=== PATIENT | female | born 1945 | race Caucasian/White ===

== ENCOUNTER 2017-07-13 07:38 | Inpatient (IN) | payer MEDICARE ==
[2017-07-08 13:41] VITALS: BMI 39.6
[2017-07-13] MEDS ORDERED: Clindamycin/D5W 900 mg/50 ml Premix Bag ONE (08:06)
[2017-07-13] MEDS ORDERED: Levofloxacin 500 mg/D5W 100 ml Premix Bag ONE (08:06)
[2017-07-13 08:34] LABS: #Basophils 0.1 thou/uL (0.0-0.2); #Eosinphils 0.2 thou/uL (0.0-0.7); #Lymphocytes 2.3 thou/uL (1.20-3.40); #Monocytes 0.5 thou/uL (0.11-0.59); #Neutrophils 3.7 thou/uL (1.40-6.50); %Basophils 0.9 % (0.0-1.0); %Eosinophils 3.2 % (0.0-10.0); %Lymphocytes 33.7 % (21.0-51.0); %Monocytes 7.8 % (0.0-10.0); Hematocrit 44.2 % (36.0-47.0); Mean Platelet Volume 7.4 fL (7.4-10.4); Red Blood Cell (RBC) Count 4.46 mill/uL (4.20-5.40); White Blood Cell (WBC) Count 6.9 thou/uL (4.8-10.8)
[2017-07-13 08:52] LABS: Anion Gap 13 mmol/L (10-20); BUN (Urea Nitrogen) 20 mg/dL (9.8-20.1); Calc. Creatinine Clearance 75 mL/min (70-130); Calcium 9.7 mg/dL (7.8-10.44); Carbon Dioxide 30 mmol/L (23-31); Chloride 103 mmol/L (98-107); Estimated GFR-MDRD 55
[2017-07-13] MEDS ORDERED: Fentanyl 250 MCG/5 ML VIAL ONE ×2 (09:31→11:30)
[2017-07-13] MEDS ORDERED: Midazolam HCl 2 mg/2 ml Vial ONE (09:31)
--- NOTE | 2017-07-13 11:04 | OP ---
DATE OF PROCEDURE: 07/13/2017 SURGEON: Son Sandoval M.D. MANUFACTURER'S SERVICE REPRESENTATIVE: Andrea Sharma PA-C PROCEDURE: Left L3-4 far lateral microdiskectomy. PROCEDURE IN DETAIL: The patient brought to the operating room and intubated. She was rolled in the prone position on gel-filled chest rolls. Incision made exposing left L4-5 and our level was confir med by x-ray. We performed a left L4-5 facetectomy, laminectomy, and foraminotomy and identified the left L4 nerve root and the left L4-5 lateral recess. We identified an extruded disc herniation and a bulging lateral disk herniation and these were removed and completely decompressing the neural chilkoot ents. The wound was extensively irrigated, immaculate hemostasis was secured. Vancomycin powder was applied and the wound was closed in anatomic layers.
[2017-07-13] MEDS ORDERED: HYDROmorphone 2 MG/ML VIAL SLOW IVP PRN (11:31)
[2017-07-13] MEDS ORDERED: Ondansetron HCl/PF 4 MG/2 ML Vial IVP PRN (11:31)
[2017-07-13] MEDS ORDERED: Promethazine HCl 25 MG/ML VIAL IM PRN ×2 (11:31→12:04)
[2017-07-13] MEDS ORDERED: Promethazine HCl 25 MG/ML VIAL SLOW IVP PRN (11:31)
[2017-07-13] MEDS ORDERED: Albuterol Sulfate 1.25 MG/3 ML NEB ONE (11:57)
[2017-07-13] MEDS ORDERED: Ondansetron HCl/PF 4 MG/2 ML Vial IM PRN (12:04)
[2017-07-13] MEDS ORDERED: Milk Of Magnesia 30 ML UDCUP PO PRN ×2 (12:04→17:15)
[2017-07-13] MEDS ORDERED: Promethazine HCl 12.5 MG SUPP PR PRN (12:04)
[2017-07-13] MEDS ORDERED: Zolpidem Tartrate 5 MG TAB PO PRN (12:04)
[2017-07-13] MEDS ORDERED: tiZANidine HCl 4 MG TAB PO PRN (12:04)
[2017-07-13] MEDS ORDERED: Mag-Al 1200 mg/1200 mg/30 ML UDCUP PO PRN (12:04)
[2017-07-13] MEDS ORDERED: diphenhydrAMINE 50 MG/ML VIAL IVP PRN (12:04)
[2017-07-13] MEDS ORDERED: diphenhydrAMINE 25 MG CAP PO PRN (12:04)
[2017-07-13] MEDS ORDERED: HYDROcodone/Acetaminophen 10/325 mg Tablet PO PRN ×2 (12:04)
[2017-07-13] MEDS ORDERED: Sodium Chloride For Inhalation 0.9% 3 ML NEB ONE (12:20)
[2017-07-13] MEDS ORDERED: Morphine 4 MG/ML VIAL ONE ×2 (13:43→16:16)
[2017-07-13] MEDS ORDERED: Ketorolac Tromethamine 30 MG/ML VIAL ONE (13:59)
[2017-07-13] MEDS ORDERED: Glycopyrrolate 0.2 MG/ML 5 ML SYRINGE ONE (13:59)
[2017-07-13] MEDS ORDERED: Lidocaine 1% PF 5 ML VIAL ONE (13:59)
[2017-07-13] MEDS ORDERED: Dexamethasone 20 MG/5 ML VIAL ONE (13:59)
[2017-07-13] MEDS ORDERED: Ondansetron HCl/PF 4 MG/2 ML Vial ONE (13:59)
[2017-07-13] MEDS ORDERED: Propofol 200 MG/20 ML VIAL ONE (13:59)
[2017-07-13] MEDS ORDERED: Acetaminophen/Codeine 30-300mg Tablet PO PRN (17:06)
[2017-07-13] MEDS ORDERED: ALPRAZolam 0.25 MG TAB PO PRN (17:06)
[2017-07-13] MEDS ORDERED: Cyanocobalamin 1000 MCG/ML VIAL IM SCH (17:15)
[2017-07-13] MEDS ORDERED: Senokot 8.6 MG TAB PO PRN (17:17)
[2017-07-13] MEDS ORDERED: Nitroglycerin 0.4 MG TAB (25 Tab Bottle) SL PRN (17:17)
[2017-07-13] MEDS: Ketorolac Tromethamine 30 MG/ML VIAL IVP SCH (17:21)
[2017-07-13] MEDS: Clindamycin/D5W 900 MG in Premix Bag 1 BAG IVPB SCH (17:22)
[2017-07-13] MEDS ORDERED: HumaLOG 300 UNITS/3 ML VIAL SC PRN (17:59)
[2017-07-13] MEDS: Sodium Chloride 0.9% 1,000 ML IV SCH (19:10)
--- NOTE | 2017-07-13 19:29 | PDOC.PN ---
- Subjective Encounter Start Date: 07/13/17 Encounter Start Time: 19:27 Pt seen for management of medical comorbidities, including chest pain. She reports having chest tightness starting 15 min ago, accompanied by jaw discomfort. Reports having similar episodes in the past. Reports having stents (artificial plastic eye maker is in [place], pt saw Dr Gutiérrez prior to surgery). Denies fevers or chills. No nausea or vomiting. - Objective MAR Reviewed: Yes Vital Signs & Weight: Vital Signs (12 hours) Temp Pulse Resp BP Pulse Ox 07/13/17 18:16 98.2 F 101 H 20 128/78 95 07/13/17 17:00 98.2 F 92 20 147/81 H 95 Weight Weight 210 lb Result Diagrams: 07/13/17 08:09 07/13/17 08:09 Additional Labs: Accuchecks 07/13/17 13:53 POC Glucose 264 H Phys Exam - Physical Examination Obese HEENT: moist MMs, sclera anicteric Neck: supple Respiratory: no wheezing, no rales, no rhonchi, clear to auscultation bilateral Cardiovascular: RRR, no rub Gastrointestinal: soft, non-tender Musculoskeletal: pulses present s/p back surgery Neurological: moves all 4 limbs Lymphatic: no nodes Psychiatric: normal affect, A&O x 3 Skin: no rash, normal turgor Dx/Plan (1) Chest pain Code(s): R07.9 - CHEST PAIN, UNSPECIFIED Status: Acute (2) DM2 (diabetes mellitus, type 2) Status: Chronic (3) Dyslipidemia Code(s): E78.5 - HYPERLIPIDEMIA, UNSPECIFIED Status: Chronic (4) CAD (coronary artery disease) Code(s): I25.10 - ATHSCL HEART DISEASE OF [place] CORONARY ARTERY W/O ANG PCTRS Status: Chronic (5) HTN (hypertension) Code(s): I10 - ESSENTIAL (PRIMARY) HYPERTENSION Status: Chronic - Plan * . Check 12 lead EKG, troponin. Pt says she is currently pain free. Continue nitro PRN. If abnormal EKG or troponins, consider transfer to telemetry floor overnight. Pt's blood sugars have been high, monitor blood sugars, pt may need adjustments to insulin pump dosing. She reports blood sugars are controlled at home, high sugars today may be due to surgery/catecholamine response. Monitor vital signs, titrate antihypertensives as needed. Review of Systems - Review of Systems Respiratory: negative: Cough, Dry, Shortness of Breath, Hemoptysis, SOB with Excertion, Pleuritic Pain, Sputum, Wheezing Cardiovascular: Chest Pain. negative: Palpitations, Orthopnea, Paroxysmal Noc. Dyspnea, Edema, Light Headedness Gastrointestinal: negative: Nausea, Vomiting, Abdominal Pain, Diarrhea, Constipation, Melena, Hematochezia Musculoskeletal: Back Pain - Medications/Allergies Allergies/Adverse Reactions: Allergies Allergy/AdvReac Type Severity Reaction Status Date / Time lactose Allergy Verified 07/08/17 13:40 Penicillins Allergy SEVERE Verified 07/08/17 13:40 BLOOD SUGAR ELEVATION Sulfa (Sulfonamide Allergy Verified 07/08/17 13:37 Antibiotics) IVP Allergy Uncoded 07/08/17 13:39 Medications: Current Medications Acetaminophen/Codeine Phosphate (Tylenol #3) 1 tab PO BID PRN PRN Reason: Pain Hydrocodone Bitart/Acetaminophen ([place] 10/325) 1 tab PO Q4H PRN PRN Reason: PAIN (1-3) Hydrocodone Bitart/Acetaminophen ([place] 10/325) 2 tab PO Q4H PRN PRN Reason: PAIN (4-6) Acidophilus (Floranex) 1 tab PO DAILY [facility] Al Hydroxide/Mg Hydroxide (Maalox) 30 ml PO Q4H PRN PRN Reason: Heartburn or Indigestion Alprazolam (Xanax) 0.25 mg PO DAILYPRN PRN PRN Reason: Insomnia Coenzyme Q10 (Coenzyme Q10) 100 mg PO DAILY [facility] Cyanocobalamin (Vitamin B-12) 1,000 mcg IM Q30D [facility] Diphenhydramine HCl (Benadryl) 25 mg PO Q6H PRN PRN Reason: Itching Diphenhydramine HCl (Benadryl) 25 mg IVP Q6H PRN PRN Reason: Itching Fenofibrate (Tricor) 145 mg PO DAILY [facility] Hydrochlorothiazide (Hydrochlorothiazide) 12.5 mg PO DAILY [facility] Sodium Chloride (Normal Saline 0.9%) 1,000 mls @ 75 mls/hr IV .[id number] [facility] Last Admin: 07/13/17 19:10 Dose: Not Given Clindamycin Phosphate/Dextrose (900 mg/ Device) 50 mls @ 100 mls/hr IVPB 0000, 1600 [facility] Stop: 07/14/17 00:29 Last Admin: 07/13/17 17:22 Dose: 50 mls Insulin Human Lispro (Humalog) 0 units SC ASDIR PRN PRN Reason: Hyperglycemia Ketorolac Tromethamine (Toradol) 15 mg IVP Q6HR [facility] Stop: 07/15/17 12:01 Last Admin: 07/13/17 17:21 Dose: 15 mg Loratadine (Claritin) 10 mg PO DAILY [facility] Losartan Potassium (Cozaar) 100 mg PO DAILY [facility] Magnesium Hydroxide (Milk Of Magnesium) 30 ml PO Q12H PRN PRN Reason: Constipation Magnesium Hydroxide (Milk Of Magnesium) 5 ml PO DAILY PRN PRN Reason: Constipation Meclizine HCl (Antivert) 50 mg PO DAILY [facility] Metoprolol Succinate (Toprol Xl) 50 mg PO HS [facility] Morphine Sulfate (Morphine) 2 mg SLOW IVP Q1H PRN PRN Reason: Moderate Breakthrough Pain Multivitamins (Theragran) 1 tab PO DAILY [facility] Nitroglycerin (Nitrostat) 0.4 mg SL Q5MIN PRN PRN Reason: Chest Pain Ondansetron HCl (Zofran) 4 mg IM Q24H PRN PRN Reason: Nausea/Vomiting Promethazine HCl (Phenergan) 12.5 mg IM Q4H PRN PRN Reason: Nausea/Vomiting Promethazine HCl (Phenergan) 12.5 mg PO Q4H PRN PRN Reason: Nausea/Vomiting Promethazine HCl (Phenergan Suppository) 12.5 mg IN Q4H PRN PRN Reason: Nausea/Vomiting Rosuvastatin Calcium (Crestor) 20 mg PO HS [facility] Senna (Senokot) 2 tab PO HS PRN PRN Reason: Constipation Sodium Chloride (Flush - Normal Saline) 10 ml IVF PRN PRN PRN Reason: Saline Flush Tizanidine HCl (Zanaflex) 4 mg PO Q6H PRN PRN Reason: MUSCLE SPASM Zolpidem Tartrate (Ambien) 5 mg PO HS PRN PRN Reason: Insomnia
[2017-07-13 20:32] LABS: Troponin I 0.104 ng/mL (< 0.028)
[2017-07-13] MEDS ORDERED: Nitroglycerin 2% Ointment 1 INCH/1 GM Packet TOP SCH (21:30)
[2017-07-13 23:36] LABS: Troponin I 0.105 ng/mL (< 0.028)
[2017-07-14] MEDS: Clindamycin/D5W 900 MG in Premix Bag 1 BAG IVPB SCH (00:18)
[2017-07-14] MEDS: Ketorolac Tromethamine 30 MG/ML VIAL IVP SCH ×5 (00:19→23:53)
[2017-07-14] MEDS: Sodium Chloride 0.9% 1,000 ML IV SCH ×2 (02:53→13:33)
[2017-07-14] MEDS: Nitroglycerin 2% Ointment 1 INCH/1 GM Packet TOP SCH ×4 (05:23→23:56)
[2017-07-14] MEDS: Meclizine HCl 25 MG TAB PO SCH (09:19)
[2017-07-14] MEDS: Lactinex Tablet PO SCH (09:19)
[2017-07-14] MEDS: Loratadine 10 MG TAB PO SCH (09:19)
[2017-07-14] MEDS: Losartan Potassium 25 MG TAB PO SCH (09:22)
[2017-07-14] MEDS: Multivit, Therapeutic 1 TAB PO SCH (09:22)
[2017-07-14] MEDS: Ubidecarenone 50 MG CAP PO SCH (09:22)
[2017-07-14] MEDS: Hydrochlorothiazide 25 MG TAB PO SCH (09:22)
[2017-07-14] MEDS: Fenofibrate Nanocrystallized 145 MG TAB PO SCH (09:22)
--- NOTE | 2017-07-14 10:21 | PDOC.PN ---
- Subjective Encounter Start Date: 07/14/17 Encounter Start Time: 07:40 -: old records requested/rev Patient seen and examined. No new complaints. No overnight events, no chest pain , ambulatory, no back pain - Objective MAR Reviewed: Yes Vital Signs & Weight: Vital Signs (12 hours) Temp Pulse Resp BP Pulse Ox 07/14/17 07:55 97.8 F 74 14 110/57 L 96 07/14/17 04:50 97.9 F 87 18 114/65 94 L Weight Weight 210 lb I&O: 07/13/17 07/14/17 07/15/17 06:59 06:59 06:59 Intake Total 850 Balance 850 Result Diagrams: 07/13/17 08:09 07/13/17 08:09 Additional Labs: Accuchecks 07/13/17 13:53 POC Glucose 264 H Phys Exam - Physical Examination Constitutional: NAD HEENT: PERRLA, moist MMs, sclera anicteric Neck: no JVD, supple Respiratory: no wheezing, no rales, no rhonchi Cardiovascular: RRR, no significant murmur, no rub Gastrointestinal: soft, non-tender, no distention, positive bowel sounds Musculoskeletal: no edema, pulses present Neurological: non-focal, normal sensation, moves all 4 limbs Psychiatric: normal affect, A&O x 3 Skin: no rash, normal turgor Dx/Plan (1) Chest pain Code(s): R07.9 - CHEST PAIN, UNSPECIFIED Status: Acute (2) S/P lumbar microdiscectomy Code(s): Z98.890 - OTHER SPECIFIED POSTPROCEDURAL STATES Status: Acute (3) Anxiety Code(s): F41.9 - ANXIETY DISORDER, UNSPECIFIED Status: Chronic (4) CAD (coronary artery disease) Code(s): I25.10 - ATHSCL HEART DISEASE OF [place] CORONARY ARTERY W/O ANG PCTRS Status: Chronic (5) DM2 (diabetes mellitus, type 2) Status: Chronic (6) Dyslipidemia Code(s): E78.5 - HYPERLIPIDEMIA, UNSPECIFIED Status: Chronic (7) Elevated troponin Code(s): R74.8 - ABNORMAL LEVELS OF OTHER SERUM ENZYMES Status: Chronic (8) HTN (hypertension) Code(s): I10 - ESSENTIAL (PRIMARY) HYPERTENSION Status: Chronic (9) Macrocytosis Code(s): D75.89 - OTHER SPECIFIED DISEASES OF BLOOD AND BLOOD-FORMING ORGANS Status: Chronic (10) Obesity (BMI 30-39.9) Code(s): E66.9 - OBESITY, UNSPECIFIED Status: Chronic - Plan cont current plan of care, plan discussed w/ family, PT/OT * no more chest pain and troponin is chronically elevated * plan for discharge later today * discussed with pt and * medication reviewed as below * symptomatic treatment * resume home meds. Review of Systems - Review of Systems ENT: negative: Ear Pain, Ear Discharge, Nose Pain, Nose Discharge, Nose Congestion, Mouth Pain, Mouth Swelling, Throat Pain, Throat Swelling, Other Respiratory: negative: Cough, Dry, Shortness of Breath, Hemoptysis, SOB with Excertion, Pleuritic Pain, Sputum, Wheezing Cardiovascular: negative: Chest Pain, Palpitations, Orthopnea, Paroxysmal Noc. Dyspnea, Edema, Light Headedness, Other Gastrointestinal: negative: Nausea, Vomiting, Abdominal Pain, Diarrhea, Constipation, Melena, Hematochezia, Other Genitourinary: negative: Dysuria, Frequency, Incontinence, Hematuria, Retention , Other Musculoskeletal: negative: Neck Pain, Shoulder Pain, Arm Pain, Back Pain, Hand Pain, Leg Pain, Foot Pain, Other Skin: negative: Rash, Lesions, Krzysztof, Bruising, Other - Medications/Allergies Allergies/Adverse Reactions: Allergies Allergy/AdvReac Type Severity Reaction Status Date / Time lactose Allergy Verified 07/08/17 13:40 Penicillins Allergy SEVERE Verified 07/08/17 13:40 BLOOD SUGAR ELEVATION Sulfa (Sulfonamide Allergy Verified 07/08/17 13:37 Antibiotics) IVP Allergy Uncoded 07/08/17 13:39 Medications: Current Medications Acetaminophen/Codeine Phosphate (Tylenol #3) 1 tab PO BID PRN PRN Reason: Pain Hydrocodone Bitart/Acetaminophen ([place] 10/325) 1 tab PO Q4H PRN PRN Reason: PAIN (1-3) Hydrocodone Bitart/Acetaminophen ([place] 10/325) 2 tab PO Q4H PRN PRN Reason: PAIN (4-6) Acidophilus (Floranex) 1 tab PO DAILY [facility] Last Admin: 07/14/17 09:19 Dose: 1 tab Al Hydroxide/Mg Hydroxide (Maalox) 30 ml PO Q4H PRN PRN Reason: Heartburn or Indigestion Alprazolam (Xanax) 0.25 mg PO DAILYPRN PRN PRN Reason: Insomnia Last Admin: 07/14/17 03:42 Dose: 0.25 mg Coenzyme Q10 (Coenzyme Q10) 100 mg PO DAILY [facility] Last Admin: 07/14/17 09:22 Dose: Not Given Cyanocobalamin (Vitamin B-12) 1,000 mcg IM Q30D [facility] Diphenhydramine HCl (Benadryl) 25 mg PO Q6H PRN PRN Reason: Itching Diphenhydramine HCl (Benadryl) 25 mg IVP Q6H PRN PRN Reason: Itching Fenofibrate (Tricor) 145 mg PO DAILY [facility] Last Admin: 07/14/17 09:22 Dose: Not Given Hydrochlorothiazide (Hydrochlorothiazide) 12.5 mg PO DAILY [facility] Last Admin: 07/14/17 09:22 Dose: Not Given Sodium Chloride (Normal Saline 0.9%) 1,000 mls @ 75 mls/hr IV .[id number] [facility] Last Admin: 07/14/17 02:53 Dose: Not Given Insulin Human Lispro (Humalog) 0 units SC ASDIR PRN PRN Reason: Hyperglycemia Ketorolac Tromethamine (Toradol) 15 mg IVP Q6HR [facility] Stop: 07/15/17 12:01 Last Admin: 07/14/17 05:21 Dose: 15 mg Loratadine (Claritin) 10 mg PO DAILY [facility] Last Admin: 07/14/17 09:19 Dose: 10 mg Losartan Potassium (Cozaar) 100 mg PO DAILY [facility] Last Admin: 07/14/17 09:22 Dose: Not Given Magnesium Hydroxide (Milk Of Magnesium) 30 ml PO Q12H PRN PRN Reason: Constipation Magnesium Hydroxide (Milk Of Magnesium) 5 ml PO DAILY PRN PRN Reason: Constipation Meclizine HCl (Antivert) 50 mg PO DAILY [facility] Last Admin: 07/14/17 09:19 Dose: 50 mg Metoprolol Succinate (Toprol Xl) 50 mg PO HS [facility] Last Admin: 07/13/17 20:17 Dose: Not Given Morphine Sulfate (Morphine) 2 mg SLOW IVP Q1H PRN PRN Reason: Moderate Breakthrough Pain Multivitamins (Theragran) 1 tab PO DAILY [facility] Last Admin: 07/14/17 09:22 Dose: Not Given Nitroglycerin (Nitrostat) 0.4 mg SL Q5MIN PRN PRN Reason: Chest Pain Nitroglycerin (Nitro-Bid 2% Ointment) 1 inch TOP Q6HR [facility] Last Admin: 07/14/17 05:23 Dose: Not Given Ondansetron HCl (Zofran) 4 mg IM Q24H PRN PRN Reason: Nausea/Vomiting Promethazine HCl (Phenergan) 12.5 mg IM Q4H PRN PRN Reason: Nausea/Vomiting Promethazine HCl (Phenergan) 12.5 mg PO Q4H PRN PRN Reason: Nausea/Vomiting Promethazine HCl (Phenergan Suppository) 12.5 mg SD Q4H PRN PRN Reason: Nausea/Vomiting Rosuvastatin Calcium (Crestor) 20 mg PO HS [facility] Last Admin: 07/13/17 20:16 Dose: 20 mg Senna (Senokot) 2 tab PO HS PRN PRN Reason: Constipation Sodium Chloride (Flush - Normal Saline) 10 ml IVF PRN PRN PRN Reason: Saline Flush Tizanidine HCl (Zanaflex) 4 mg PO Q6H PRN PRN Reason: MUSCLE SPASM Zolpidem Tartrate (Ambien) 5 mg PO HS PRN PRN Reason: Insomnia
--- NOTE | 2017-07-14 12:21 | DIS ---
DATE OF ADMISSION: 07/13/2017 DATE OF DISCHARGE: 07/14/2017 PRIMARY CARE PHYSICIAN: Bucky Spaulding M.D. DISCHARGE DISPOSITION: Home. PRIMARY DISCHARGE DIAGNOSES: 1. Left L3-L4 lateral microdiscectomy. 2. Chest pain, ruled out acute coronary syndrome. SECONDARY DISCHARGE DIAGNOSES: Anxiety, coronary artery disease, dyslipidemia, chronically elevated troponin, morbid obesity with body mass index 39, macrocytosis. PRIMARY PROCEDURE/OPERATION: L3-L4 left lateral microdiscectomy. RADIOLOGICAL INVESTIGATION: None. SIGNIFICANT LABORATORY DATA: WBC 6.9, hemoglobin 14.7, platelets 240. Sodium 142, potassium 3.5, BU N 20, creatinine 0.99, calcium 9.7. Troponin 0.105. DISCHARGE MEDICATIONS: The patient will resume her home medications. The patient is on following me dications: Tylenol #3 one tablet b.i.d. p.r.n., Xanax 0.25 mg p.o. as directed, Aspirin and Plavix w ill be resumed when neurosurgeon okay. Vitamin B12 1000 mcg every month, TriCor 145 mg p.o. daily, H umalog as per insulin pump as directed, [place] 1 tablet q.6 hourly p.r.n., probiotic 1 capsule p.o. da iqra, Claritin 10 mg daily, losartan with hydrochlorothiazide 100/12.5 one tablet p.o. daily, Milk of Magnesia p.r.n., meclizine 25 mg daily, Toprol-XL 50 mg p.o. at bedtime, multivitamin 1 tablet p.o. d aily, nitroglycerin as directed, Crestor 20 mg p.o. at bedtime, Senokot 1 tablet p.o. daily p.r.n., Z anaflex 4 mg q.i.d. p.r.n., coenzyme Q10 one capsule p.o. daily. CONTRAINDICATIONS: None. CODE STATUS: FULL CODE. INPATIENT CONSULTANTS: Dr. Sandoval was primary while in hospital. Sound Team was consulted for [facility] comanagement. TEST RESULTS PENDING ON DISCHARGE: None. ALLERGIES: LACTOSE, PENICILLIN, and SULFA. DISCHARGE PLAN: Post hospital, patient will follow up with Dr. Sandoval as instructed and the patien t will make appointment with primary care physician. HOSPITAL COURSE: A 72-year-old female with above-mentioned medical problem who was electively admitt ed by Dr. Sandoval for lumber microdiscectomy which was done on 07/13/2017. Postoperatively, Justino sevilla was consulted for medical comanagement. The patient's medical problems remained stable. She was complaining of chest pain and that is why we did EKG which was unremarkable. We did troponin which was indeterminant range, but chronically elevated troponin. We suspected acid reflux related pain be cause patient was n.p.o. for procedure and after that patient did not eat anything and she was feelin g gas pain. We monitored in hospital, patient did very well after surgery. This patient is seen and examined at bedside today. Please see my progress note from today for furth er details. The patient will resume all her home medication except aspirin and Plavix. Other medica tions will be resumed upon discharge. Overall, the patient is medically stable for discharge today.
--- NOTE | 2017-07-14 12:33 | CON ---
DATE OF CONSULTATION: 07/14/2017 HISTORY OF PRESENT ILLNESS: The patient is a 72-year-old with a long history of coronary artery disease, who underwent surgery yesterday and developed substernal chest discomfort. The patient has a long history of coronary artery disease. She is followed by Dr. Garrido in [place]. She has had multiple stents placed as well as a Rotablator. The patient also known to have diffuse coronary artery disease. The patient was seen for preoperative evaluation. She reports having stable angina, which occurs once or twice a month and is resolved with 1-2 nitroglycerin tablets. The patient yesterday underwent a laminectomy. She developed substernal chest discomfort, which lasted approximately 15 minutes and resolved on its own. The patient has discontinued both her Plavix and aspirin for the week prior to surgery. The patient denies having any present chest discomfort. PAST MEDICAL HISTORY: 1. Diabetes mellitus. 2. Hypertension. 3. Coronary artery disease. 4. Chronic renal insufficiency. PAST SURGICAL HISTORY: Hysterectomy and gastric sleeve. ALLERGIES: PENICILLIN and SULFA DRUGS. SOCIAL HISTORY: Nonsmoker. FAMILY HISTORY: Positive family history of coronary artery disease. REVIEW OF SYSTEMS: Ten-point system noticeable for mild lower extremity edema. PHYSICAL EXAMINATION: GENERAL: An obese woman in no acute distress. VITAL SIGNS: Blood pressure was 110/57. NECK: No jugular venous distention. LUNGS: Clear to auscultation. HEART: Regular rate and rhythm, normal S1 and S2, no murmurs. ABDOMEN: Distended. EXTREMITIES: Reveal mild bilateral edema. SKIN: Warm and dry. NEUROLOGICAL EXAM: Nonfocal. VASCULAR: Radial pulses 2+. LABORATORY RESULTS: Her sodium is 142, potassium 3.5, chloride 103, bicarbonate 30, BUN 20, creatinine is 0.99, glucose 243, troponin 0.104. White blood cell count 6.9, hemoglobin 14.7, hematocrit 44.2, and her platelets are 240. Her EKG revealed an electronic ventricular pacemaker. IMPRESSION: 1. Angina. 2. History of severe coronary artery disease, status post multiple stents. 3. Hypertension. 4. Diabetes mellitus. 5. Dyslipidemia. 6. History of pacemaker placement. This patient developed prolonged angina after undergoing surgery. She has been off antiplatelet medication for the past 7 days. She is at high risk of complication until restarting either Plavix or aspirin. We will discuss with Dr. Sandoval whether she can be restarted on aspirin. We will follow this patient with you through her hospitalization. FRANCIS
[2017-07-15] MEDS: Sodium Chloride 0.9% 1,000 ML IV SCH (03:19)
[2017-07-15] MEDS: Ketorolac Tromethamine 30 MG/ML VIAL IVP SCH (06:22)
[2017-07-15] MEDS: Nitroglycerin 2% Ointment 1 INCH/1 GM Packet TOP SCH (06:23)
[2017-07-15 07:56] VITALS: BP 108/67; TEMP 98
[2017-07-15] MEDS ORDERED: Aspirin 325 MG TAB PO SCH (09:00)
[2017-07-15] MEDS: Lactinex Tablet PO SCH (09:13)
[2017-07-15] MEDS: Ubidecarenone 50 MG CAP PO SCH (09:13)
[2017-07-15] MEDS: Hydrochlorothiazide 25 MG TAB PO SCH (09:14)
[2017-07-15] MEDS: Losartan Potassium 25 MG TAB PO SCH (09:14)
[2017-07-15] MEDS: Meclizine HCl 25 MG TAB PO SCH (09:14)
[2017-07-15] MEDS: Multivit, Therapeutic 1 TAB PO SCH (09:14)
[2017-07-15] MEDS: Fenofibrate Nanocrystallized 145 MG TAB PO SCH (09:15)
[2017-07-15] MEDS: Loratadine 10 MG TAB PO SCH (09:15)
--- NOTE | 2017-07-15 10:54 | DIS ---
HOSPITAL COURSE: The patient is a 72-year-old female who had recently been seen by us in the clinic for left L4 radiculopathy. MRI showed far lateral herniated disk at left L4-L5, therefore, the patient underwent left L4-L5 far lateral microdiskectomy. The next night postoperatively, the patient developed chest pain. She was evaluated by Cardiology. She had an indeterminate troponin. She had no additional episodes of chest pain and no significant EKG changes. The next day patient had no additional CP or changes in her enzymes, therefore cardiology felt that the patient could be safely discharge home on aspirin. We will continue to hold her Plavix for the next week. Otherwise, the patient was tolerating her pain well, who was ambulatory throughout the department. She was tolerating diet. No additional complications. We will discharge to home and follow up with 2 weeks, I have discussed home care and precautions. She was provided with scripts for [place] and Zanaflex. FRANCIS
== END 2017-07-15 11:02 | disposition home or self-care (01) | DRG 520 ==
LOC: SDC 07:38 → SJJU 13:57
PROVIDERS: ADMIT Neurological Surgery; ATTEND Neurological Surgery
PROC: 0SB20ZZ Excision of Lumbar Vertebral Disc, Open Approach (ICD-10-PCS; principal; 2017-07-13)
PROC: 01NB0ZZ Release Lumbar Nerve, Open Approach (ICD-10-PCS; 2017-07-13)
DX: M51.16 Intervertebral disc disorders with radiculopathy, lumbar region (principal); D75.89 Other specified diseases of blood and blood-forming organs; E11.9 Type 2 diabetes mellitus without complications; E66.01 Morbid (severe) obesity due to excess calories; E78.5 Hyperlipidemia, unspecified; F41.9 Anxiety disorder, unspecified; I25.119 Atherosclerotic heart disease of native coronary artery with unspecified angina pectoris; Z68.39 Body mass index [BMI] 39.0-39.9, adult; R74.8 Abnormal levels of other serum enzymes; Z88.0 Allergy status to penicillin; Z88.7 Allergy status to serum and vaccine; Z91.011 Allergy to milk products
CPT/HCPCS: 36415; 36416; 76001; 80048; 84484; 85025; 93005; 93010; G8978-GP-CL; G8979-GP-CI; J1100; J1885; J1956; J2001; J2250; J2270; J2405; J2704; J3010; J3370; J3490

== ENCOUNTER 2017-12-21 14:44 | Outpatient (CLI) | payer MEDICARE | END 2017-12-21 14:45 | disposition home or self-care (01) | LOC: BICMAMMO 14:44 | PROVIDERS: ATTEND Obstetrics & Gynecology | DX: Z12.31 Encounter for screening mammogram for malignant neoplasm of breast (principal); R92.1 Mammographic calcification found on diagnostic imaging of breast | CPT/HCPCS: 77063; 77067 ==

== ENCOUNTER 2019-06-17 15:23 | Outpatient (CLI) | payer MEDICARE ==
--- NOTE | 2019-06-17 16:32 | MMO ---
Bilateral MAMMO Bilat Screen [facility]. CLINICAL HISTORY: Patient is 74 years old and is seen for screening. The patient has no family history of breast cancer. The patient has no personal history of cancer. The patient has a history of right Stereotatic Biopsy in 2004 - benign. VIEWS: The views performed were: bilateral craniocaudal with tomosynthesis; bilateral mediolateral oblique with tomosynthesis; and left mediolateral oblique. FILMS COMPARED: The present examination has been compared to prior imaging studies performed at [facility] on 10/04/2015, 04/16/2016, 11/05/2016 and 12/21/2017. This study has been interpreted with the assistance of computer-aided detection. MAMMOGRAM FINDINGS: The breasts are heterogeneously dense, which could obscure a lesion on mammography. Benign calcifications are noted bilaterally. There are no suspicious masses, suspicious calcifications, or new areas of architectural distortion. IMPRESSION: THERE IS NO MAMMOGRAPHIC EVIDENCE OF MALIGNANCY. A ROUTINE FOLLOW-UP MAMMOGRAM IN 1 YEAR IS RECOMMENDED. THE RESULTS OF THIS EXAM WERE SENT TO THE PATIENT. ACR BI-RADS Category 2 - Benign finding MAMMOGRAPHY NOTE: 1. A negative mammogram report should not delay a biopsy if a dominant of clinically suspicious mass is present. 2. Approximately 10% to 15% of breast cancers are not detected by mammography. 3. Adenosis and dense breasts may obscure an underlying neoplasm. Reported by: CRISTINA SALVADOR MD Electonically Signed: [id number]
== END 2019-06-17 15:24 | disposition home or self-care (01) ==
LOC: BICMAMMO 15:23
PROVIDERS: ATTEND Obstetrics & Gynecology
DX: Z12.31 Encounter for screening mammogram for malignant neoplasm of breast (principal)
CPT/HCPCS: 77063; 77067

== ENCOUNTER 2020-07-25 08:48 | Observation (INO) | payer MEDICARE ==
[2020-07-25 09:31] LABS: #Basophils 0.1 thou/uL (0.0-0.2); #Eosinphils 0.1 thou/uL (0.0-0.7); #Lymphocytes 1.9 thou/uL (1.20-3.40); #Monocytes 0.6 thou/uL (0.11-0.59); #Neutrophils 5.2 thou/uL (1.40-6.50); %Basophils 0.7 % (0.0-1.0); %Eosinophils 1.3 % (0.0-10.0); %Lymphocytes 24.1 % (21.0-51.0); %Neutrophils 66.9 % (42.0-75.0); Hemoglobin 14.4 g/dL (12.0-16.0); Mean Corpuscular HGB CONC 33.1 g/dL (32.0-36.0); Mean Corpuscular Volume 99.5 fL (78.0-98.0); Mean Platelet Volume 8.2 fL (7.4-10.4); Platelet Count 200 thou/uL (130-400); Red Blood Cell (RBC) Count 4.38 mill/uL (4.20-5.40); White Blood Cell (WBC) Count 7.8 thou/uL (4.8-10.8)
[2020-07-25 09:47] LABS: PTT 25.6 sec (22.9-36.1); Prothrombin Time 12.9 sec (12.0-14.7)
[2020-07-25 09:49] LABS: ALT (SGPT) 25 U/L (8-55); AST (SGOT) 29 U/L (5-34); Albumin 3.8 g/dL (3.4-4.8); Alkaline Phosphatase 63 U/L (40-110); Anion Gap 13 mmol/L (10-20); BUN (Urea Nitrogen) 21 mg/dL (9.8-20.1); Bilirubin, Total 0.6 mg/dL (0.2-1.2); CK (CPK) 157 U/L (29-168); Calc. Creatinine Clearance 0 mL/min (70-130); Calcium 8.9 mg/dL (7.8-10.44); Carbon Dioxide 25 mmol/L (23-31); Chloride 106 mmol/L (98-107); Globulin 3.2 g/dL (2.4-3.5); Glucose 136 mg/dL (83-110); Potassium 3.6 mmol/L (3.5-5.1); Sodium 140 mmol/L (136-145)
[2020-07-25 10:09] LABS: CKMB 3.6 ng/mL (0-6.6)
[2020-07-25] MEDS ORDERED: Aspirin Chewable 81 MG TAB ONE (10:20)
--- NOTE | 2020-07-25 10:22 | RAD ---
RIGHT KNEE 4 VIEWS: Date: 07/25/2020 HISTORY: Fell with laceration to knee. FINDINGS: There are no signs of fracture or dislocation. No joint effusion seen. No air seen within the joint s pace. IMPRESSION: Unremarkable right knee. POS: DARRIN
--- NOTE | 2020-07-25 10:23 | RAD ---
PORTABLE CHEST: Date: 07/25/2020 HISTORY: Syncope. Patient fell. FINDINGS: Heart size is enlarged. Pacemaker is present. The lungs are clear of infiltrates. No signs of failure . IMPRESSION: Marked cardiomegaly. POS: DARRIN
[2020-07-25] MEDS ORDERED: Bacitracin 1 PK ONE (10:40)
[2020-07-25 11:57] LABS: Bilirubin Negative (Negative); Blood, Urine Negative (Negative); Clarity Clear (Clear); Glucose, Urine (Dipstick) Normal (Negative); Ketone, Urine Negative (Negative); Leukocyte Negative Leu/uL (Negative); Nitrite Negative (Negative); Protein, Urine (Dipstick) Negative (Neg-Trace); Specific Gravity, Urine 1.023 (1.002-1.036); Urobilinogen Normal mg/dL (Less than 2)
--- NOTE | 2020-07-25 12:47 | CT ---
CT OF BRAIN PERFORMED WITHOUT CONTRAST ENHANCEMENT: Date: 07/25/2020 HISTORY: Syncope with fall, contusion to right eye. COMPARISON: 06/19/2015 study. FINDINGS: Generalized ventricular and sulcal prominence is noted with decreased attenuation to the periventricu lar white matter consistent with some chronic white matter change. There are no signs of intracerebra l hemorrhage or extra-axial fluid collections. Mastoid air cells and visualized sinuses are clear. IMPRESSION: No acute intracranial abnormalities. POS: DARRIN
--- NOTE | 2020-07-25 12:49 | CT ---
CT OF FACIAL BONES PERFORMED WITHOUT CONTRAST ENHANCEMENT: Date: 07/25/2020 HISTORY: Patient fell. Contusion to right eye. FINDINGS: The nasal bone is felt to be intact. At the base of the right side of the nasal bone, there is some m inimal cortical irregularity, and there are some soft tissue changes in this area. This could represe nt a subtle nondisplaced fracture. Clinical correlation recommended. Zygomatic arches are intact. Pte rygoid processes are intact. No air fluid levels seen within the sinuses. No signs of any floor fracture of either orbit. Mandible is intact and condyles are in normal position. IMPRESSION: Very subtle irregularity to the base of the right side of the nasal bone which could represent a tiny nondisplaced fracture. There does appear to be some soft tissue swelling in this region. Clinical co rrelation recommended. POS: DARRIN
--- NOTE | 2020-07-25 12:51 | CT ---
CT OF CERVICAL SPINE PERFORMED WITHOUT CONTRAST ENHANCEMENT: Date: 07/25/2020 HISTORY: Neck injury status post fall. FINDINGS: The bones are demineralized. The vertebral bodies are normal in height. Mild degenerative facet loera es are seen. The facets are in normal alignment. There is no evidence of any canal stenosis or signif icant foraminal narrowing. No CT evidence for fracture. Lung apices are clear. IMPRESSION: No CT evidence of fracture of the cervical spine. POS: DARRIN
--- NOTE | 2020-07-25 12:55 | CT ---
CT ABDOMEN AND PELVIS PERFORMED WITH CONTRAST ENHANCEMENT: Date: 07/25/2020 HISTORY: Patient fell, with abdomen pain. FINDINGS: The lung bases show some subsegmental atelectatic change. The liver shows diffuse fatty change. The spleen and pancreas regions are unremarkable. Gallstones ar e noted. Right and left adrenal glands, and right and left kidneys are normal in size4. Bilateral renal cysts are seen. No signs of any free fluid or bowel wall injury. CT of pelvis performed with contrast enhancement. Some mild diverticulosis changes of the sigmoid col on are seen. The appendix is normal. No free fluid. No evidence for fracture of the pelvic ring. Bones are demineralized. Arthritic changes of the spine are present. IMPRESSION: 1 Fatty changes of the liver. 2. Postoperative changes of the stomach with a small hiatal hernia. 3. Bilateral renal cysts. 4. No acute injury. POS: DARRIN
[2020-07-25] MEDS ORDERED: Iopamidol-370 76% 500 ML 1 ML ONE (13:01)
[2020-07-25] MEDS ORDERED: Acetaminophen 325 MG TAB PO PRN (13:30)
[2020-07-25] MEDS ORDERED: Ondansetron PF 4 MG/2 ML Vial IVP PRN (13:30)
[2020-07-25] MEDS ORDERED: Ondansetron ODT 4 MG TAB SL PRN (13:30)
--- NOTE | 2020-07-25 13:49 | PDOC.HHP ---
Hospitalist HPI - History of Present Illness Fall History of Present Illness: Patient is a pleasant 75-year-old lady was seen in emergency room on July 25, 2020 following a fall. Patient is a good historian. She lives in assisted living. Today morning she woke up slightly groggy and went to her bathroom to urinate. She had to pull her pants down to do this. After urinating, she tried to lean forward to pull her pants up. She reports falling at that time. She denies any loss of consciousness. She denies any chest pain or palpitations. Apparently, she told the emergency room physician that she had a fluttering sensation in her chest prior to the fall. She was referred to hospitalist serv ice for syncope. Patient currently denies any fever, chills, nausea or vomiting. She denies any urinary symptoms. She reports that she has a chronic history of dizziness and vertigo. 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 ED Course: BP: 160/71, Pulse: 86, Resp: 17, Temp: 98.0 (Oral), Pain: 4, O2 sat: 99 on (Room Air), Time: 07/25/2020 08:57. Hospitalist ROS - Review of Systems Eyes: denies: pain, vision change, conjunctivae inflammation, eyelid inflammation, redness, other Cardiovascular: reports: light headedness. denies: chest pain, palpitations, orthopnea, paroxysmal noc. dyspnea, edema Skin: denies: rash, lesions, yimi, bruising All other systems reviewed; all pertinent +/- noted in HPI/Subj - Medication Medications: Allergies: Penicillin and sulfa Home medications: ALPRAZolam ThuJul 25, 2020 12:15 JOSE MANUEL Goins Cheryl TABLET : Strength - 0.25 mg : ORAL Patient Dose: 0.25 mg Oral once a day (at bedtime). aspirin oral ThuJul 25, 2020 12:15 JOSE MANUEL Goins Cheryl TABLET : Strength - 81 mg : ORAL Patient Dose: 81 mg Oral once a day. meTOPROLOL succinate ThuJul 25, 2020 12:15 JOSE MANUEL Goins Cheryl TABLET, EXTENDED RELEASE 24 HR : Strength - 25 mg : ORAL Patient Dose: 50 mg Oral once a day (in the morning). Plavix ThuJul 25, 2020 12:15 JOSE MANUEL Goins Cheryl TABLET : Strength - 75 mg : ORAL Patient Dose: 75 mg Oral once a day. fenofibrate ThuJul 25, 2020 12:15 JOSE MANUEL Goins, Rosaura CAPSULE : Strength - 150 mg : ORAL Patient Dose: 145 mg Oral once a day. ranolazine ThuJul 25, 2020 12:17 JOSE MANUEL Goins Cheryl tablet extended release 12 hr : Strength - 500 mg : ORAL Patient Dose: 1500 mg Oral 2 times a day.2 in the am, 1 at bedtime. losartan ThuJul 25, 2020 12:17 JOSE MANUEL Goins, Rosaura tablet : Strength - 50 mg : ORAL Patient Dose: 1 tab(s) Oral once a day. Crestor ThuJul 25, 2020 12:18 JOSE MANUEL Goins, Rosaura tablet : Strength - 20 mg : ORAL Patient Dose: 1 tab(s) Oral once a day. Wellbutrin ThuJul 25, 2020 12:18 JOSE MANUEL Goins Cheryl tablet : Strength - 75 mg : ORAL Patient Dose: 1 tab(s) Oral once a day. HumaLOG U-100 Insulin ThuJul 25, 2020 12:20 JOSE MANUEL Goins Cheryl cartridge : Strength - 100 unit/mL : SUBCUTANEOUS Patient Dose: Unknown.pt on pump- reports she fills reservoir every 2-3 days. Hospitalist History - Past Medical History Other Medical History: Past medical history: Obstructive sleep apnea syndrome Mnire's disease vertigo hepatitis diabetes mellitus type 2 dyslipidemia hypertension coronary artery disease Surgical history: Pacemaker placement hysterectomy cardiac catheterization and PCI with 6 coronary stents. Social history: Patient denies tobacco use, alcohol use or recreational drug use. Family history: Premature coronary artery disease in her father. - Exam General Appearance: awake alert Eye - other findings: Right orbital bruise ENT: normocephalic atraumatic Neck: supple, symmetric, no thyromegaly, no lymphadenopathy Heart: RRR, no gallops, no rubs, normal peripheral pulses Respiratory: CTAB, no wheezes, no rales, no ronchi Gastrointestinal: soft, non-tender, non-distended, normal bowel sounds Skin: no rashes Skin - other findings: Right knee bruising Neurological: cranial nerve grossly intact, normal sensation to touch, no weakness Psychiatric: normal affect, normal behavior, A&O x 3 Hospitalist Results - Labs Result Diagrams: 07/25/20 09:16 07/25/20 09:16 Lab results: WBC 7.8 thou/uL (4.8-10.8) 07/25/20 09:16 Hgb 14.4 g/dL (12.0-16.0) 07/25/20 09:16 Hct 43.5 % (36.0-47.0) 07/25/20 09:16 MCV 99.5 fL (78.0-98.0) H 07/25/20 09:16 Plt Count 200 thou/uL (130-400) 07/25/20 09:16 Neutrophils % 66.9 % (42.0-75.0) 07/25/20 09:16 Sodium 140 mmol/L (136-145) 07/25/20 09:16 Potassium 3.6 mmol/L (3.5-5.1) 07/25/20 09:16 Chloride 106 mmol/L (98-107) 07/25/20 09:16 Carbon Dioxide 25 mmol/L (23-31) 07/25/20 09:16 BUN 21 mg/dL (9.8-20.1) H 07/25/20 09:16 Creatinine 0.94 mg/dL (0.6-1.1) 07/25/20 09:16 Glucose 136 mg/dL (83-110) H 07/25/20 09:16 Calcium 8.9 mg/dL (7.8-10.44) 07/25/20 09:16 Total Bilirubin 0.6 mg/dL (0.2-1.2) 07/25/20 09:16 AST 29 U/L (5-34) 07/25/20 09:16 ALT 25 U/L (8-55) 07/25/20 09:16 Alkaline Phosphatase 63 U/L (40-110) 07/25/20 09:16 Creatine Kinase 157 U/L (29-168) 07/25/20 09:16 CK-MB (CK-2) 3.6 ng/mL (0-6.6) 07/25/20 09:16 Troponin I 0.078 ng/mL (< 0.028) H 07/25/20 09:16 Serum Total Protein 7.0 g/dL (6.0-8.3) 07/25/20 09:16 Albumin 3.8 g/dL (3.4-4.8) 07/25/20 09:16 Urine Ketones Negative mg/dL (Negative) 07/25/20 11:47 Urine Blood Negative (Negative) 07/25/20 11:47 Urine Nitrite Negative (Negative) 07/25/20 11:47 Ur Leukocyte Esterase Negative Magan/uL (Negative) 07/25/20 11:47 - EKG Interpretation EKG: EKG by my review shows electronic ventricular paced rhythm, no ST changes to suggest an acute coronary syndrome. - Radiology Interpretation Chest x-ray Status: image reviewed by me Additional Comment: PORTABLE CHEST: Date: 07/25/2020 HISTORY: Syncope. Patient fell. FINDINGS: Heart size is enlarged. Pacemaker is present. The lungs are clear of infiltrates. No signs of failure . IMPRESSION: Marked cardiomegaly. CT scan - head Additional Comment: CT OF BRAIN PERFORMED WITHOUT CONTRAST ENHANCEMENT: Date: 07/25/2020 HISTORY: Syncope with fall, contusion to right eye. COMPARISON: 06/19/2015 study. FINDINGS: Generalized ventricular and sulcal prominence is noted with decreased attenuation to the periventricu lar white matter consistent with some chronic white matter change. There are no signs of intracerebra l hemorrhage or extra-axial fluid collections. Mastoid air cells and visualized sinuses are clear. IMPRESSION: No acute intracranial abnormalities. CT OF FACIAL BONES PERFORMED WITHOUT CONTRAST ENHANCEMENT: Date: 07/25/2020 HISTORY: Patient fell. Contusion to right eye. FINDINGS: The nasal bone is felt to be intact. At the base of the right side of the nasal bone, there is some m inimal cortical irregularity, and there are some soft tissue changes in this area. This could represe nt a subtle nondisplaced fracture. Clinical correlation recommended. Zygomatic arches are intact. Pte rygoid processes are intact. No air fluid levels seen within the sinuses. No signs of any floor fracture of either orbit. Mandible is intact and condyles are in normal position. IMPRESSION: Very subtle irregularity to the base of the right side of the nasal bone which could represent a tiny nondisplaced fracture. There does appear to be some soft tissue swelling in this region. Clinical co rrelation recommended. Hospitalist H&P A/P - Problem (1) Elevated troponin Code(s): R74.8 - ABNORMAL LEVELS OF OTHER SERUM ENZYMES Status: Acute (2) Fall Code(s): W19.XXXA - UNSPECIFIED FALL, INITIAL ENCOUNTER Status: Acute (3) DM2 (diabetes mellitus, type 2) Status: Chronic (4) Dyslipidemia Code(s): E78.5 - HYPERLIPIDEMIA, UNSPECIFIED Status: Chronic (5) HTN (hypertension) Code(s): I10 - ESSENTIAL (PRIMARY) HYPERTENSION Status: Chronic (6) Anxiety Code(s): F41.9 - ANXIETY DISORDER, UNSPECIFIED Status: Chronic - Plan Plan: Troponin I is mildly elevated, in the indeterminate range. Recheck troponin. Does not appear to be a syncopal episode, based on what patient is telling me. Also pt does not appear to have had palpitations. Interrogate pacemaker. Patient's enrichment teacher is Dr. Rashid. Monitor on telemetry. PT eval and treat. Start Accu-Cheks and insulin sliding scale. Continue home medications once clarified, monitor vital signs and titrate an tihypertensives as needed. Level of risk: High Level of complexity: High Estimated length of stay in the hospital: Less than 2 midnights. PCP:Dr. Spaulding
[2020-07-25 20:01] LABS: Troponin I 0.076 ng/mL (< 0.028)
[2020-07-25 20:36] VITALS: BMI 40.4
[2020-07-25] MEDS: Acetaminophen 325 MG TAB PO PRN (22:38)
[2020-07-26] MEDS: Acetaminophen 325 MG TAB PO PRN ×2 (04:31→16:38)
[2020-07-26 04:59] LABS: #Eosinphils 0.2 thou/uL (0.0-0.7); #Lymphocytes 2.4 thou/uL (1.20-3.40); #Monocytes 0.7 thou/uL (0.11-0.59); #Neutrophils 5.5 thou/uL (1.40-6.50); %Basophils 0.3 % (0.0-1.0); %Lymphocytes 26.9 % (21.0-51.0); %Monocytes 8.3 % (0.0-10.0); %Neutrophils 62.6 % (42.0-75.0); Hemoglobin 14.1 g/dL (12.0-16.0); Mean Corpuscular HGB CONC 35.2 g/dL (32.0-36.0); Mean Corpuscular Hemoglobin 34.8 pg (27.0-31.0); Mean Corpuscular Volume 98.8 fL (78.0-98.0); Mean Platelet Volume 8.4 fL (7.4-10.4); Platelet Count 205 thou/uL (130-400); RBC Distribution Width 12.9 % (11.5-14.5); Red Blood Cell (RBC) Count 4.05 mill/uL (4.20-5.40); White Blood Cell (WBC) Count 8.8 thou/uL (4.8-10.8)
[2020-07-26 05:36] LABS: Anion Gap 15 mmol/L (10-20); BUN (Urea Nitrogen) 15 mg/dL (9.8-20.1); Calc. Creatinine Clearance 88 mL/min (70-130); Calcium 8.9 mg/dL (7.8-10.44); Carbon Dioxide 22 mmol/L (23-31); Chloride 109 mmol/L (98-107); Glucose 89 mg/dL (83-110); Potassium 3.7 mmol/L (3.5-5.1); Sodium 142 mmol/L (136-145)
[2020-07-26] MEDS ORDERED: Loratadine 10 MG TAB PO PRN (10:22)
[2020-07-26] MEDS ORDERED: Acetaminophen/Codeine 30-300mg Tablet PO PRN (10:22)
[2020-07-26] MEDS ORDERED: ALPRAZolam 0.25 MG TAB PO PRN (10:22)
[2020-07-26] MEDS ORDERED: Losartan 25 MG TAB PO SCH (10:30)
--- NOTE | 2020-07-26 12:36 | PDOC.DS.DS ---
Provider - Provider Date of Admission: 07/25/20 18:09 Date of Discharge: 07/26/20 Admitting Provider: Brock Padilla MD Primary Care Physician: Bucky Spaulding MD Course - Hospital Course Hospital Course: Discharge diagnosis: 1. Elevated troponin 2. Mechanical fall. Hospital course: Patient is a pleasant 69-year-old lady who was admitted to the hospital on July 25, 2020 following a mechanical fall. Initially there was concern that she had a fluttering sensation in her chest before she fell. However, patient is lucid and he denied having any chest pain or any such sensation of fluttering. She was seen by physical therapy service and has been recommended discharge home. Her troponin was in the indeterminate range. She did not have any chest pain and in the past her troponins were elevated as well. She wished to follow-up with her immigration coordinator as outpatient. Her pacemaker was also interrogated and did not show any significant arrhythmias. Discharge destination: Assisted living, from where patient was admitted to the hospital. - Labs Lab Results: 07/26/20 04:18 07/26/20 04:18 Abnormal Lab Results - Last 48 hrs 07/25/20 09:16: BUN 21 H 07/25/20 09:16: Troponin I 0.078 H 07/25/20 09:16: MCV 99.5 H, MCH 33.0 H, Monocytes # 0.6 H 07/25/20 14:58: Troponin I 0.070 H 07/25/20 18:26: Troponin I 0.076 H 07/26/20 04:18: Chloride 109 H, Carbon Dioxide 22 L 07/26/20 04:18: RBC 4.05 L, MCV 98.8 H, MCH 34.8 H, Monocytes # 0.7 H - Physical Exam Vitals: Vital Signs (12 hours) Temp Pulse Pulse Pulse Pulse Pulse Resp 07/26/20 11:19 98.7 F 68 17 07/26/20 09:45 07/26/20 09:10 66 69 68 70 07/26/20 03:13 97.9 F 67 20 BP BP BP BP BP BP BP 07/26/20 11:19 193/86 H 07/26/20 09:45 233/100 H 198/91 H 07/26/20 09:10 208/91 H 233/100 H 198/91 H 201/94 H 07/26/20 03:13 167/74 H BP Pulse Ox 07/26/20 11:19 96 07/26/20 09:45 208/91 H 07/26/20 09:10 07/26/20 03:13 98 Weight Weight 214 lb 3.2 oz Physical Exam: The patient was seen and examined on the day of discharge. Patient denies chest pain or shortness of breath. Vital signs are stable. S1 and S2 are heard. Lungs are clear to auscultation bilaterally. Problem - Problem (1) Elevated troponin Code(s): R74.8 - ABNORMAL LEVELS OF OTHER SERUM ENZYMES Status: Acute (2) Fall Code(s): W19.XXXA - UNSPECIFIED FALL, INITIAL ENCOUNTER Status: Acute (3) DM2 (diabetes mellitus, type 2) Status: Chronic (4) Dyslipidemia Code(s): E78.5 - HYPERLIPIDEMIA, UNSPECIFIED Status: Chronic (5) HTN (hypertension) Code(s): I10 - ESSENTIAL (PRIMARY) HYPERTENSION Status: Chronic (6) Anxiety Code(s): F41.9 - ANXIETY DISORDER, UNSPECIFIED Status: Chronic Plan - Discharge Medications Home Medications: Medication Instructions Recorded Confirmed Type ALPRAZolam [Xanax] 0.25 mg PO ASDIR PRN 07/08/17 07/25/20 History Acetaminophen With Codeine 1 tablet PO BID PRN 07/08/17 07/25/20 History [Tylenol with Codeine #3] Aspirin [Aspir-Low] 81 mg PO DAILY 07/08/17 07/25/20 History Lactobacillus Acidophilus 1 tablet PO DAILY 07/08/17 07/26/20 History [Probiotic] Loratadine [Claritin] 1 tablet PO PRN PRN 07/08/17 07/26/20 History Metoprolol Succinate [Toprol XL] 75 mg PO HS 07/08/17 07/26/20 History Rosuvastatin Calcium 20 mg PO HS 07/08/17 07/25/20 History Cholecalciferol (Vitamin D3) 1 tablet PO DAILY 07/25/20 07/26/20 History [Vitamin D] Clopidogrel Bisulfate [Plavix] 75 mg PO HS 07/25/20 07/25/20 History Ranolazine [Ranexa] 1,000 mg PO QAM 07/25/20 07/26/20 History Ranolazine [Ranexa] 500 mg PO HS 07/25/20 07/25/20 History buPROPion [Wellbutrin] 75 mg PO DAILY 07/25/20 07/25/20 History Losartan [Cozaar] 100 mg PO DAILY 07/26/20 07/26/20 History Allergies: Penicillins Allergy (Verified 07/25/20 23:19) SEVERE BLOOD SUGAR ELEVATION DURING UROLOGY PROCEDURE 15-18 YRS AGO. Sulfa (Sulfonamide Antibiotics) Allergy (Verified 07/25/20 23:19) IVP Allergy (Uncoded 11/05/19 11:30) - Follow up Plan Referrals: Bucky Spaulding MD [Primary Care Provider] - 3 Days Bob Rashid MD [Affiliate] - 7 Days Disposition: HOME Quality - Care Measures CORE MEASURES:: N/A
[2020-07-26] MEDS ORDERED: hydrALAZINE 20 MG/ML VIAL SLOW IVP PRN (13:55)
[2020-07-26 16:09] VITALS: TEMP 98.3
[2020-07-26] MEDS ORDERED: cloNIDine 0.1 MG TAB PO SCH (16:30)
[2020-07-26 16:41] VITALS: BP 217/92
[2020-07-26] MEDS ORDERED: Rosuvastatin 20 MG TAB PO SCH (21:00)
[2020-07-26] MEDS ORDERED: Clopidogrel Bisulfate 75 MG TAB PO SCH (21:00)
[2020-07-27] MEDS ORDERED: Lactinex Tablet PO SCH (09:00)
[2020-07-27] MEDS ORDERED: Non-Formulary Item 1 EACH (Ranolazine [Ranexa] 1,000 MG Tab.Er.12h) PO SCH (09:00)
[2020-07-27] MEDS ORDERED: Cholecalciferol 1,000 UNITS (25 MCG) TAB PO SCH (09:00)
[2020-07-27] MEDS ORDERED: Non-Formulary Item 1 EACH (Cholecalciferol (Vitamin D3) [Vitamin D] 1000 UNIT Capsule) PO SCH (09:00)
[2020-07-27] MEDS ORDERED: Non-Formulary Item 1 EACH (Lactobacillus Acidophilus [Probiotic] 1 CAPSULE Capsule) PO SCH (09:00)
[2020-07-27] MEDS ORDERED: Aspirin 81 mg Enteric Coated Tablet PO SCH (09:00)
[2020-07-27] MEDS ORDERED: Losartan 25 MG TAB PO SCH (09:00)
[2020-07-27] MEDS ORDERED: buPROPion 75 MG TAB PO SCH (09:00)
== END 2020-07-26 18:30 | disposition home or self-care (01) ==
LOC: ERS 08:48 → 2NO 18:09
PROVIDERS: ADMIT Internal Medicine; ATTEND Internal Medicine
DX: R74.8 Abnormal levels of other serum enzymes (principal); R55 Syncope and collapse; E11.9 Type 2 diabetes mellitus without complications; E78.5 Hyperlipidemia, unspecified; I10 Essential (primary) hypertension; F41.9 Anxiety disorder, unspecified; H81.02 Meniere's disease, left ear; G47.33 Obstructive sleep apnea (adult) (pediatric); I25.10 Atherosclerotic heart disease of native coronary artery without angina pectoris; S00.11XA Contusion of right eyelid and periocular area, initial encounter; K44.9 Diaphragmatic hernia without obstruction or gangrene; N28.1 Cyst of kidney, acquired; Z79.02 Long term (current) use of antithrombotics/antiplatelets; Z79.4 Long term (current) use of insulin; Z79.82 Long term (current) use of aspirin; Z79.899 Other long term (current) drug therapy; Z88.0 Allergy status to penicillin; Z88.2 Allergy status to sulfonamides; Z91.041 Radiographic dye allergy status; Z95.0 Presence of cardiac pacemaker; Z95.5 Presence of coronary angioplasty implant and graft; Z96.41 Presence of insulin pump (external) (internal); W18.30XA Fall on same level, unspecified, initial encounter; Y92.091 Bathroom in other non-institutional residence as the place of occurrence of the external cause
CPT/HCPCS: 70450; 70486; 71045; 72125; 73564; 74177; 80048; 80053; 81003; 82550; 82553; 82962 ×2; 84484 ×2; 85025 ×2; 85610; 85730; 93005; 96374; 97116; 97139 ×2; 99285; G0378 ×3; 36415; 36416; J0360; Q9967

== ENCOUNTER 2020-10-18 14:53 | Outpatient (CLI) | payer MEDICARE | END 2020-10-18 14:54 | disposition home or self-care (01) | LOC: BICMAMMO 14:53 | PROVIDERS: ATTEND Obstetrics & Gynecology | DX: Z12.31 Encounter for screening mammogram for malignant neoplasm of breast (principal); Z91.89 Other specified personal risk factors, not elsewhere classified | CPT/HCPCS: 77063; 77067 ==